=== PATIENT | male | born 1960 | race Caucasian/White ===

== ENCOUNTER 2016-06-01 06:27 | Day surgery (SDC) | payer MEDICAID ==
[2016-06-01] MEDS ORDERED: Sodium Chloride 0.9% 10 ML ONE (06:44)
[2016-06-01] MEDS ORDERED: Sodium Tetradecyl Sulfate 1% 20 MG/2 ML SDV ONE (06:44)
[2016-06-01] MEDS ORDERED: Lidocaine 1% with EPINEPHrine 1:100,000 50 ML MDV ONE (06:44)
[2016-06-01] MEDS ORDERED: Sodium Chloride 0.9% 1,000 ML IV SCH (07:00)
[2016-06-01] MEDS ORDERED: Propofol 200 MG/20 ML SDV ONE ×3 (07:17→08:05)
[2016-06-01] MEDS ORDERED: Midazolam 1 MG/ML 2 ML SDV ONE (07:17)
[2016-06-01] MEDS ORDERED: fentaNYL 100 MCG/2 ML SDV ONE (07:17)
[2016-06-01] MEDS: Lidocaine 1% w/EPINEPHrine 50 ML, Sodium Bicarbonate 5 MEQ in Sodium Chloride 0.9% 950 ML INJECT SCH ×2 (08:01→08:02)
[2016-06-01] MEDS ORDERED: Sodium Chloride 0.9% 10 ML SDV IV ONE (08:09)
[2016-06-01] MEDS ORDERED: Scopolamine 1.5 MG Transdermal Patch ONE (09:29)
[2016-06-01] MEDS ORDERED: Ketorolac 60 MG/2 ML SDV ONE (09:29)
[2016-06-01 09:35] VITALS: BP 118/77
--- NOTE | 2016-06-02 08:38 | OR ---
DATE OF PROCEDURE: 06/01/2016 PROCEDURE: 1. Radiofrequency ablation of left greater saphenous vein. 2. Radiofrequency ablation of right greater saphenous vein. 3. Sclerotherapy, left leg, multiple. 4. Sclerotherapy, right leg, multiple. COMPLICATIONS: None. 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 ANESTHETIC: MAC/local. PREOPERATIVE DIAGNOSIS: Venous/varicose vein insufficiency with inflammation and pain. POSTOPERATIVE DIAGNOSIS: Venous/varicose vein insufficiency with inflammation and pain. RISKS: Risks, benefits, alternatives, and limitations, including, but not limited to infection, bleeding, also formation of DVT and other risks not listed here were explained to the patient who wished to proceed. PROCEDURE IN DETAIL: The patient was placed in supine position. The left GSV was identified and accessed at the level of approximately the ankle. This was accessed by using a 21-gauge needle, then exchanged for a 35,000th wire. After local anesthetic was applied, this was then accessed using 7-[place] sheath. The RFA probe was advanced to greater than 3 cm from saphenofemoral junction. Tumescent fluid, approximately 750 mL was injected in a circumferential fashion around this. This would be verified a second and third time. Direct even pressure was then applied as the RFA probe was deployed x2, proximally and distally and x1 in all other segments. The sheath and devices were then removed. Direct pressure was held for 10 minutes, and Dermabond was applied. The right leg was then performed in same manner, same fashion, same technique in the same sequence using the same equipment. Sclerotherapy was then performed on the left and right legs. It was 3 on the right and 4 on the left. This was performed using 0.33% sodium tetradecyl. No more than 2 mL injected one location, and its lengths ranged from 1 to 5 cm. Dressings were applied. The patient tolerated the procedure well. Jarad Morgan MD /[id number]
== END 2016-06-01 09:38 | disposition home or self-care (01) ==
LOC: JP.SDS 06:27
PROVIDERS: ATTEND Surgery
DX: I87.2 Venous insufficiency (chronic) (peripheral) (principal); I83.11 Varicose veins of right lower extremity with inflammation; I83.12 Varicose veins of left lower extremity with inflammation; I83.813 Varicose veins of bilateral lower extremities with pain; I10 Essential (primary) hypertension; E78.00 Pure hypercholesterolemia, unspecified
CPT/HCPCS: 36471; 36475; J1642; J2250; J2704; J3010; J7040; J7050; A9270-GY; J1885; J3490

== ENCOUNTER 2020-04-16 08:18 | Day surgery (SDC) | payer MEDICAID ==
[2020-04-16] MEDS ORDERED: Propofol 200 MG/20 ML SDV ONE (08:54)
[2020-04-16] MEDS ORDERED: fentaNYL 100 MCG/2 ML SDV ONE (08:54)
[2020-04-16] MEDS ORDERED: Midazolam 1 MG/ML 2 ML SDV ONE (08:54)
[2020-04-16] MEDS ORDERED: Sodium Chloride 0.9% 1,000 ML IV SCH (09:00)
[2020-04-16 11:16] VITALS: BP 124/70; PULSE 69
--- NOTE | 2020-04-19 08:10 | OR ---
DATE OF PROCEDURE: 04/16/2020 SURGEON: Jarad Morgan MD PROCEDURE: Colonoscopy. FINDINGS: Poor colon prep. COMPLICATIONS: None. 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 ANESTHETIC: MAC. RISKS: Risks, benefits, alternatives, and limitations including but not limited to infection, bleeding, and perforation were explained to the patient including false positives and false negatives. PROCEDURE IN DETAIL: The patient was placed in left lateral decubitus position. Digital rectal exam was performed without abnormality. Scope was introduced and advanced atraumatically to the ileocecal valve. Scope was brought back to the ascending, transverse, and descending colon and retroflexed. No evidence of old or new blood. No polyps. No masses. The prep was marginal, approximately 85% to 90% of the luminal surface could be seen. No evidence of colitis, old or new blood. No abnormalities on retroflexion. The patient tolerated the procedure well. The patient will be offered repeat colonoscopy. Jarad Morgan MD /[id number]
--- NOTE | 2020-04-19 08:55 | OR ---
DATE OF PROCEDURE: 04/16/2020 SURGEON: Jarad Morgan MD ADDENDUM: Addendum to his colonoscopy. The patient was counseled when he was awake and oriented with respect to repeat colonoscopy. We discussed the risks, benefits, alternatives, and the recommendation due to the fact that he had a marginal colon prep. The patient has declined repeat colonoscopy, he understands that he pathology including colorectal cancer behind and its associated ramifications. The patient understands these risks, wishes to proceed. Jarad Morgan MD /[id number]
== END 2020-04-16 11:25 | disposition home or self-care (01) ==
LOC: JP.SDS 08:18
PROVIDERS: ATTEND Surgery
DX: Z12.11 Encounter for screening for malignant neoplasm of colon (principal); I10 Essential (primary) hypertension
CPT/HCPCS: J2250; J2704; J3010; J7030